=== PATIENT | female | born 1975 | race Caucasian/White ===

== ENCOUNTER 2021-09-29 00:05 | Emergency (ER) | payer BC ==
[~2021-09-29 00:05] MED LIST: CIPRO500 MG PO; FERROUS SULFAT325 M2 PO; FLAGYL500 MG PO; LODINE CAP 300300 MG PO; MOBIC15 MG PO; ONDANSETRON ODT4 MG SL; PRILOSEC OTC20 MG PO
[2021-09-29] MEDS ORDERED: HYDROCODON-ACE1 EAC4 PO (02:19)
== END 2021-09-29 02:39 | disposition home or self-care (01) ==
LOC: ER1 00:05
DX: S20.219A Contusion of unspecified front wall of thorax, initial encounter (principal); S20.212A Contusion of left front wall of thorax, initial encounter; S23.3XXA Sprain of ligaments of thoracic spine, initial encounter; W19.XXXA Unspecified fall, initial encounter; Y92.832 Beach as the place of occurrence of the external cause
CPT/HCPCS: 71046; 72128; 99284